=== PATIENT | female | born 1950 | race Asian ===

== ENCOUNTER 2017-04-24 13:13 | Emergency (ER) | payer MEDICAID, MEDICARE ==
[~2017-04-24] VITALS: Ht 157.5 cm; Wt 70.3 kg
[~2017-04-24 13:13] MED LIST: CEPH500C PO; FLUO-125 PO; FLUT50SP13; FOLI1TAB6 PO; NAPR-607 PO; PANT40TA2 PO; PERCOT PO; PRE1T PO
[2017-04-24 13:41] LABS: Basophils # (auto) 0 uL; Basophils % (auto) 0.7 % (0.0-2.0); Eosinophils # (auto) 0.1 uL; Eosinophils % (auto) 2.2 % (0.0-7.0); Hemoglobin 12.5 g/dL (12.2-16.2); Lymphocytes # (auto) 0.5 uL; Lymphocytes % (auto) 11.2 % (10.0-50.0); Mean Corpuscular Hgb Conc. 32.2 g/dL (32.0-36.0); Mean Corpuscular Volume 93.2 fL (80.0-100.0); Mean Platelet Volume 7.6 fL (6.9-10.8); Monocytes # (auto) 0.4 uL; Monocytes % (auto) 9.8 % (0.0-12.0); Neutrophils # (auto) 3.4 uL; Neutrophils % (auto) 76.1 % (37.0-80.0); Nucleated Red Blood Cells % 0.1 %; Platelet Count (auto) 223 10^3/uL (140-450); Red Cell Distribution Width 14.3 % (11.8-14.3); White Blood Cell 4.5 10^3/uL (4.4-10.8)
[2017-04-24 14:00] LABS: Albumin 3.3 g/dL (3.4-5.0); Anion Gap 7 (5-15); Aspartate Aminotransferase 26 U/L (15-37); BUN/Creatinine Ratio 11.1; Blood Urea Nitrogen 6 mg/dL (7-18); Calcium 8.5 mg/dL (8.5-10.1); Carbon Dioxide 23 mmol/L (21-32); Chloride 108 mmol/L (98-107); GFR African American 146 mL/min; GFR Non-African American 120 mL/min; Glucose 81 mg/dL (74-106); Potassium 3.8 mmol/L (3.5-5.1); Sodium 138 mmol/L (136-145)
[2017-04-24 14:05] LABS: Alkaline Phosphatase 170 U/L (45-117); Bilirubin, Total 0.3 mg/dL (0.2-1.0); Total Protein 7.3 g/dL (6.4-8.2)
[2017-04-24 15:30] VITALS: BP 155/91
[2017-04-24 16:12] LABS: Amylase 21 U/L (25-115)
== END 2017-04-24 16:36 | disposition home or self-care (01) ==
LOC: ER 13:13
DX: B02.9 Zoster without complications (principal); K21.9 Gastro-esophageal reflux disease without esophagitis; I10 Essential (primary) hypertension; M06.9 Rheumatoid arthritis, unspecified; Z88.6 Allergy status to analgesic agent
CPT/HCPCS: 36415; 80053; 82150; 83690; 84484; 85025; 93005

== ENCOUNTER 2019-07-27 21:16 | Emergency (ER) | payer MEDICARE, MEDICAID ==
[~2019-07-27] VITALS: Ht 165.1 cm; Wt 68.0 kg
[~2019-07-27 21:16] MED LIST changes: -NAPR-607 PO; +NAPR500T31 PO
[2019-07-27 22:01] LABS: Basophils # (auto) 0.1 uL; Eosinophils # (auto) 0.2 uL; Eosinophils % (auto) 2.6 % (0.0-7.0); Hemoglobin 11.9 g/dL (12.2-16.2); Lymphocytes % (auto) 15.9 % (10.0-50.0); Mean Corpuscular Hemoglobin 31.9 pg (28.0-32.0); Mean Corpuscular Hgb Conc. 34.1 g/dL (32.0-36.0); Mean Corpuscular Volume 93.7 fL (80.0-100.0); Monocytes # (auto) 0.5 uL; Monocytes % (auto) 7.9 % (0.0-12.0); Neutrophils # (auto) 4.8 uL; Neutrophils % (auto) 72.6 % (37.0-80.0); Platelet Count (auto) 369 10^3/uL (140-450); Red Blood Cells 3.73 10^6/uL (4.0-5.20); Red Cell Distribution Width 14.9 % (11.8-14.3); White Blood Cell 6.6 10^3/uL (4.4-10.8)
[2019-07-27 22:19] LABS: Alanine Aminotransferase 18 U/L (13-56); Albumin 2.4 g/dL (3.4-5.0); Anion Gap 8 (5-15); Aspartate Aminotransferase 24 U/L (15-37); BUN/Creatinine Ratio 6.5; Blood Urea Nitrogen 5 mg/dL (7-18); Calcium 8.3 mg/dL (8.5-10.1); Carbon Dioxide 21 mmol/L (21-32); Chloride 108 mmol/L (98-107); GFR African American 96 mL/min; GFR Non-African American 79 mL/min; Glucose 98 mg/dL (74-106); Sodium 137 mmol/L (136-145)
[2019-07-27 22:24] LABS: Alkaline Phosphatase 143 U/L (45-117); Bilirubin, Total 0.3 mg/dL (0.2-1.0); Total Protein 6.7 g/dL (6.4-8.2)
[2019-07-27 22:28] LABS: Potassium 2.9 mmol/L (3.5-5.1)
[2019-07-27] MEDS ORDERED: POTASSIUM CHL 20MEQ/100ML 100 ML IV ONE (22:45)
[2019-07-27] MEDS ORDERED: SODIUM CHLORIDE 0.9% 500 ML IV ONE (23:00)
[2019-07-28 01:00] VITALS: BP 121/72
== END 2019-07-28 01:33 | disposition short-term general hospital (02) ==
LOC: EDBD 21:16 → ER 21:18
DX: S06.6X0A Traumatic subarachnoid hemorrhage without loss of consciousness, initial encounter (principal); S72.301A Unspecified fracture of shaft of right femur, initial encounter for closed fracture; E87.6 Hypokalemia; R55 Syncope and collapse; Z88.6 Allergy status to analgesic agent; Z79.899 Other long term (current) drug therapy; W18.39XA Other fall on same level, initial encounter; Y93.89 Activity, other specified; Y92.89 Other specified places as the place of occurrence of the external cause; Y99.8 Other external cause status
CPT/HCPCS: 36415; 70450; 71045; 73562; 80053; 80320; 82962; 84484; 85025; 93005; 96365; 96366; 99285; J3480; J7040; 96360

== ENCOUNTER 2025-06-10 15:26 | Emergency (ER) | payer MEDICARE, MEDICAID ==
[~2025-06-10] VITALS: Ht 157.5 cm; Wt 67.1 kg
[~2025-06-10 15:26] MED LIST changes: +ASPI-325; -CEPH500C PO; +CHOL20002; +FERR325T24 PO; +FOLI-119 PO; -FOLI1TAB6 PO; +HYDR200T36; +LEFL1TAB3; +LORA-483; -NAPR500T31 PO; -PERCOT PO; -PRE1T PO
--- NOTE | 2025-06-10 15:54 | ED.PDOC ---
SOB-HPI HPI Comments 74 y.o female with PMHx of COPD, presents to the ED for a chief complaint of SOB associated with a productive cough that started 2 weeks ago. Patient reports no alleviating factors despite using 3LMP of oxygen via NC at home with a saturation as low as 88%. Patient presents with SPO2 of 95% on her oxygen. She denies any nausea, vomiting, fever, chills, leg swelling or chest pain. She denies substance, alcohol or tobacco use. Chief Complaint: Shortness of Breath Time Seen by MD: 15:47 Primary Care Provider: DR. 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 [employer] History Family History Family History: Reviewed,noncontributory to illness Social History Smoker: Non-Smoker Alcohol: Denies ETOH Use Drugs: Denies Drug Use Lives In: Home Constitutional: denies: chills, diaphoresis, fatigue, fever, malaise, sweats, weakness, others EENTM: denies: blurred vision, double vision, ear bleeding, ear discharge, ear drainage, ear pain, ear ringing, eye pain, eye redness, hearing loss, mouth pain, mouth swelling, nasal discharge, nose bleeding, nose congestion, nose pain, photophobia, tearing, throat pain, throat swelling, voice changes, others Respiratory: reports: cough, SOB at rest, shortness of breath; denies: hemoptysis, orthopnea, SOB with excertion, stridor, wheezing, others Cardiovascular: denies: chest pain, dizzy spells, diaphoresis, Dyspnea on exertion, edema, irregular heart beat, left arm pain, lightheadedness, palpitations, PND, syncope, others Gastrointestinal: denies: abdomen distended, abdominal pain, blood streaked bowels, constipated, diarrhea, dysphagia, difficulty swallowing, hematemesis, melena, nausea, poor appetite, poor fluid intake, rectal bleeding, rectal pain, vomiting, others Genitourinary: denies: abnormal vagina bleeding, burning, dyspareunia, dysuria, flank pain, frequency, hematuria, incontinence, pain, , vagina discharge, urgency, others Neurological: denies: dizziness, fainting, headache, left sided numbness, left sided weakness, numbness, paresthesia, pre-existing deficit, right sided numbness, right sided weakness, seizure, speech problems, tingling, tremors, weakness, others Musculoskeletal: denies: back pain, gout, joint pain, joint swelling, muscle pain, muscle stiffness, neck pain, others Integumetry: denies: bruises, change in color, change in hair/nails, dryness, laceration, lesions, lumps, rash, wounds, others Allergic/Immunocompromised: denies: Difficulty Healing, Frequent Infections, Hives, Itching, others Hematologic/Lymphatic: denies: anemia, blood clots, easy bleeding, easy bruising, swollen glands, others Endocrine: denies: excessive hunger, excessive sweating, excessive thirst, excessive urination, flushing, intolerance to cold, intolerance to heat, unexplained weight gain, unexplained weight loss, others Psychiatric: denies: anxiety, bipolar disorder, depression, hopeless, panic disorder, schizophrenia, sleepless, suicidal, others All Other Systems: Reviewed and Negative Physical Exam General Appearance: Moderate Distress HEENT: Normal ENT Inspection, Pharynx Normal, TMs Normal Neck: Full Range of Motion, Non-Tender, Normal, Normal Inspection Respiratory: Chest Non-Tender, Decreased Breath Sounds, Lungs Clear, No Accessory Muscle Use, Respiratory Distress Cardiovascular: No Edema, No JVD, No Murmur, No Gallop, Normal Peripheral Pulses, Regular Rate/Rhythm Breast Exam: Deferred Gastrointestinal: No Organomegaly, Non Tender, No Pulsatile Mass, Normal Bowel Sounds, Soft Genitalia: Deferred Pelvic: Deferred Rectal: Deferred Extremities: No calf tenderness, Normal capillary refill, No pedal edema Musculoskeletal : Apperance: Normal Neurologic: Alert, aligning inspector II-XII nml as Tested, Motor Weakness, Normal Affect, Normal Mood, No Sensory Deficits Cerebellar Function: Normal Reflexes: Normal Skin: Dry, Normal Color, Warm Lymphatic: No Adenopathy Was a procedure done? Was a procedure done?: No Differential Dx Differential Diagnosis: Asthma, Bronchitis, CHF, COPD, Pneumonia, Respiratory Distress, URI X-Ray, Labs, Meds, VS Vital Signs Date Time Temp Pulse Resp B/P (MAP) Pulse Ox O2 Delivery O2 Flow Rate FiO2 06/10/25 15:41 75 06/10/25 15:30 96.9 81 20 165/86 95 96.9 Lab Test 06/10/25 17:16 06/10/25 16:20 Range/Units Troponin I High Sensitivity Pending 6 </=34 ng/L White Blood Count 6.7 4.4-10.8 10^3/uL Red Blood Count 3.75 L 4.0-5.20 10^6/uL Hemoglobin 11.8 L 12.2-16.2 g/dL Hematocrit 35.9 L 36.0-46.0 % Mean Corpuscular Volume 95.5 80.0-100.0 fL Mean Corpuscular Hemoglobin 31.3 28.0-32.0 pg Mean Corpuscular Hemoglobin Concent 32.8 32.0-36.0 g/dL Red Cell Distribution Width 14.6 H 11.8-14.3 % Platelet Count 347 140-450 10^3/uL Mean Platelet Volume 7.5 6.9-10.8 fL Neutrophils (%) (Auto) 65.0 37.0-80.0 % Lymphocytes (%) (Auto) 18.4 10.0-50.0 % Monocytes (%) (Auto) 5.5 0.0-12.0 % Eosinophils (%) (Auto) 6.8 0.0-7.0 % Basophils (%) (Auto) 4.3 H 0.0-2.0 % Neutrophils # (Auto) 4.4 1.6-8.6 10 ^3/uL Lymphocytes # (Auto) 1.2 0.4-5.4 10 ^3/uL Monocytes # (Auto) 0.4 0-1.3 10 ^3/uL Eosinophils # (Auto) 0.5 0-0.8 10 ^3/uL Basophils # (Auto) 0.3 H 0-0.2 10 ^3/uL Nucleated Red Blood Cells 0.0 % Sodium Level 136 136-145 mmol/L Potassium Level 3.8 3.5-5.1 mmol/L Chloride Level 102 98-107 mmol/L Carbon Dioxide Level 24 20-31 mmol/L Anion Gap 10 5-15 Blood Urea Nitrogen 7 L 9-23 mg/dL Creatinine 0.61 0.550-1.02 mg/dL Glomerular Filtration Rate Calc 94 >90 mL/min BUN/Creatinine Ratio 11.5 10.0-20.0 Serum Glucose 78 74-106 mg/dL Lactic Acid Level 1.0 0.4-2.0 mmol/L Calcium Level 9.1 8.7-10.4 mg/dL B-Type Natriuretic Peptide 20.90 0-100 pg/mL PROCEDURE(s): CXRP - CHEST PORTABLE IMPRESSION: NO ACUTE CARDIOPULMONARY PROCESS. IV Hep-Lock was established. The patient's troponin level is negative The CBC and chemistry panel are within normal limits The D-dimer and they The BNP is within normal limits Is being admitted to the hospitalist. Images Reviewed?: Images reviewed and evaluated by me Time of 1ST Reevaluation: 15:51 Reevaluation 1ST: Unchanged Patient Education/Counseling: Diagnosis, Treatment, Prognosis Family Education/Counseling: Diagnosis, Treatment, Prognosis SEPSIS Sepsis Screen Date sepsis recognized/suspect: Jun 10, 2025 Time Sepsis recognized/suspect: 1532 Recent Procedure: No On Antibiotic Therapy: No Respiratory Rate >20: No Heart Rate >90: No Temp<36 C (96.8 F) or >38.3 C: No SBP <90 or MAP <65 mmHG: No New Acute Mental Status Change: No Is the patient on CPAP, BIPAP,: No Physician Orders Electrocardigram (06/10/25 15:35) Urinalysis (06/10/25 16:04) Chest Portable (06/10/25 16:04) Heplock Iv (06/10/25 16:04) Pulse Oximetry (06/10/25 16:04) Programmer Numerical Control (06/10/25 16:04) Blood Pressure (06/10/25 16:04) Blood Culture (06/10/25 16:04) Covid19 Antigen Jud (06/10/25 ) Rapid Influenza A&B (06/10/25 16:04) Troponin-I Hs (06/10/25 17:04) Troponin-I Hs (06/10/25 19:04) Vital Signs Date Time Temp Pulse Resp B/P (MAP) Pulse Ox O2 Delivery O2 Flow Rate FiO2 06/10/25 15:41 75 06/10/25 15:30 96.9 81 20 165/86 95 96.9 Laboratory Tests Test 11/14/25 16:20 Lactic Acid Level 1.0 mmol/L (0.4-2.0) White Blood Count 6.7 10^3/uL (4.4-10.8) Departure 1 Departure Time of Disposition: 17:25 Impression: Primary Impression: Acute respiratory failure Qualified Codes: J96.01 - Acute respiratory failure with hypoxia Disposition: ADMITTED INPATIENT Admit to: [facility] Condition: Fair Critical Care Note Critical Care Time?: No Stability Stability form required: Yes Unstable for transfer: Telemetry monitoring (Telemetry monitoring required), ED Physician Assesment (Clinical assesment) Heart Score Heart Score: Heart Score Response (Comments) Value History N/A 0 EKG N/A 0 Age N/A 0 Risk Factors N/A 0 Troponin N/A 0 Total 0 I personally scribed for BEN LOZANO MD ([email or web address]) on 06/10/25 at 15:54. Electronically submitted by Tiffany Billy ([email or web address]). I personally scribed for BEN LOZANO MD ([email or web address]) on 06/10/25 at 17:24. Electronically submitted by Richard Turpin ([email or web address]). BEN LOZANO MD Jun 10, 2025 15:54
--- NOTE | 2025-06-10 16:37 | DVH ---
CLINICAL HISTORY: sob TECHNIQUE: Single view of the chest was obtained. COMPARISON: XY CHEST TWO VIEWS ROUTINE on DOS: 06/09/25, XY CHEST PORTABLE on DOS: 09/05/24, XY CHEST PORTABLE on DOS: 09/04/24 FINDINGS: The heart size and pulmonary vasculature are normal. There are similar-appearing extensive right pleural plaques. Is no new focal lung consolidation. There are bands of bibasilar atelectasis and/or scar. IMPRESSION: NO ACUTE CARDIOPULMONARY PROCESS.
[2025-06-10 16:57] LABS: Hematocrit 35.9 % (36.0-46.0); Hemoglobin 11.8 g/dL (12.2-16.2); Mean Corpuscular Hemoglobin 31.3 pg (28.0-32.0); Mean Corpuscular Volume 95.5 fL (80.0-100.0); Nucleated Red Blood Cells % 0.0 %
[2025-06-10 17:07] LABS: Chloride 102 mmol/L (98-107); Potassium 3.8 mmol/L (3.5-5.1); Sodium 136 mmol/L (136-145)
[2025-06-10 17:08] LABS: Anion Gap 10 (5-15); Calcium 9.1 mg/dL (8.7-10.4); Carbon Dioxide 24 mmol/L (20-31)
[2025-06-10 17:13] LABS: BUN/Creatinine Ratio 11.5 (10.0-20.0); Glucose 78 mg/dL (74-106)
[2025-06-10 17:20] LABS: Blood Urea Nitrogen 7 mg/dL (9-23)
[2025-06-10 18:55] VITALS: PULSE 77; RESP 16; O2SAT 95
[2025-06-10 20:17] LABS: COVID19 ANTIGEN SOFIA FIA NEGATIVE (NEGATIVE)
[2025-06-10 20:40] VITALS: BP 150/89; PULSE 77; RESP 20; TEMP 98.7; O2SAT 97
[2025-06-10 22:08] LABS: Urine Protein, UAD Negative (Negative)
--- NOTE | 2025-06-11 19:38 | ECG ---
[facility] Test Date: 2025-06-10 Test Time: 15:41:57 Pat Name: THEO GORDON Department: ED Room: Gender: F Brush Cleaner: JULISSA : 1950 Requested By: BEN LOZANO Order Number: [id number] Reading MD: Samy De Jesus Measurements Intervals [place] Rate: 75 P: 57 NC: 150 QRS: 90 QRSD: 93 T: 55 QT: 376 QTc: 420 Interpretive Statements Sinus rhythm Borderline right axis deviation Borderline T abnormalities, anterior leads Baseline wander in lead(s) V2 Electronically Signed On 06-14-2025 17:44:33 PST by Samy De Jesus Please click the below link to view image of tracing.
== END 2025-06-10 23:33 | disposition left against medical advice (07) ==
LOC: ER 15:26
DX: J96.00 Acute respiratory failure, unspecified whether with hypoxia or hypercapnia (principal); J44.9 Chronic obstructive pulmonary disease, unspecified; F32.A Depression, unspecified; M19.90 Unspecified osteoarthritis, unspecified site; Z20.822 Contact with and (suspected) exposure to COVID-19
CPT/HCPCS: 36415; 71045; 80048; 81001; 83605; 83880; 84484; 85025; 85379; 87040; 87426; 87804; 93005